=== PATIENT | female | born 1985 ===

== ENCOUNTER 2024-03-13 10:21 | Outpatient (CLI) | payer OTHER | END 2024-03-13 10:50 | disposition home or self-care (01) | LOC: NST 10:21 | PROVIDERS: ATTEND Obstetrics & Gynecology Gynecology | DX: Z34.82 Encounter for supervision of other normal pregnancy, second trimester (principal) ==

== ENCOUNTER 2024-03-18 12:45 | Inpatient (IN) | payer OTHER ==
[~2024-03-18] VITALS: Ht 152.4 cm; Wt 3.2 kg
[2024-03-18] MEDS ORDERED: CEFAZOLIN SODIUM 1,000 MG VIAL IV SCH (14:00)
[2024-03-18] MEDS ORDERED: CITRIC ACID/SODIUM CITRATE 30 ML BLIST.PACK PO SCH (14:00)
[2024-03-18 14:13] LABS: HEMATOCRIT 36.6 % (36.0-45.00); HEMOGLOBIN 12.6 g/dL (12.0-15.00); MEAN CELL VOLUME 88.2 fL (80.00-100.00); MEAN CORPUSCULAR HEMOGLOBIN 30.3 pg (27.00-32.0); MEAN CORPUSCULAR HGB CONC 34.3 g/dl (32.0-36.0); RED BLOOD COUNT 4.15 M/uL (4.00-6.00); RED CELL DISTRIBUTION WIDTH 16.8 % (11.5-14.5)
[2024-03-18 14:27] LABS: PLATELET COUNT 116 K/uL (150-450)
[2024-03-18 14:41] LABS: ALBUMIN 2.8 gm/dL (3.4-5.0); BILIRUBIN TOTAL 0.51 mg/dL (0.3-1.2); CALCIUM 9.1 mg/dL (8.5-10.1); CREATININE SERUM 0.52 mg/dL (0.55-1.02); GFR 132.69; GLOBULINA 3.6 G/DL (2.4-3.5); POTASSIUM 3.88 mEq/L (3.5-5.1); TOTAL PROTEIN 6.4 gm/dL (6.4-8.2)
[2024-03-18 15:04] LABS: INR < 0.93; PARTIAL THROMBOPLASTIN TIME 25.9 SECONDS (22.0-34.0); PROTHROMBIN TIME 9.4 SECONDS (9.0-11.5)
[2024-03-19] MEDS ORDERED: PRENATAL + DHA1 EAC1 PO (12:26)
[2024-03-19] MEDS ORDERED: OXYTOCIN 1,000 ML IV SCH (15:00)
[2024-03-19] MEDS ORDERED: IBUprofen 400 MG TABLET PO PRN (15:00)
[2024-03-19] MEDS ORDERED: MEPERIDINE HCL/PF 50 MG/ML VIAL IM PRN (15:00)
[2024-03-19] MEDS ORDERED: OXYTOCIN 10 UNITS/ML VIAL IV ONE (15:15)
[2024-03-19] MEDS ORDERED: ERYTHROMYCIN BASE 1 GM TUBE OP ONE (15:15)
[2024-03-19] MEDS ORDERED: MORPHINE SULFATE 4 MG/ML VIAL IV ONE (17:30)
[2024-03-19] MEDS ORDERED: OXYTOCIN 10 UNITS/ML VIAL ONE (17:31)
[2024-03-20] MEDS ORDERED: OxyCODONE HCL/APAP UD (PERCOCET) PO PRN (08:30)
[2024-03-20 09:58] LABS: HEMATOCRIT 33.1 % (36.0-45.00); HEMOGLOBIN 11.1 g/dL (12.0-15.00); MEAN CORPUSCULAR HEMOGLOBIN 30.2 pg (27.00-32.0); MEAN CORPUSCULAR HGB CONC 33.6 g/dl (32.0-36.0); RED BLOOD COUNT 3.68 M/uL (4.00-6.00); RED CELL DISTRIBUTION WIDTH 16.5 % (11.5-14.5)
[2024-03-20 10:00] LABS: PLATELET COUNT 93 K/uL (150-450)
[2024-03-21] MEDS ORDERED: FAMOtidine 20 MG TABLET PO SCH (09:15)
[2024-03-21] MEDS ORDERED: DOCUSATE CALCIUM 240 MG CAPSULE PO SCH (09:15)
[2024-03-21] MEDS ORDERED: IBUprofen 600 MG TABLET PO SCH (09:15)
[2024-03-21] MEDS ORDERED: ACETAMINOPHEN 500 MG GEL..CAP PO SCH (12:00)
== END 2024-03-22 13:44 | disposition home or self-care (01) | DRG 788 ==
LOC: EDUNIT# 12:45 → OB/GYN 03-19 11:04 → LDR 03-19 11:04 → O/R 03-19 15:25 → OB/GYN 03-19 15:34
PROVIDERS: Obstetrics & Gynecology; ADMIT Obstetrics & Gynecology Maternal & Fetal Medicine; ATTEND Obstetrics & Gynecology Maternal & Fetal Medicine
PROC: 4A1HXCZ Monitoring of Products of Conception, Cardiac Rate, External Approach (ICD-10-PCS; 2024-03-19)
PROC: 10D00Z1 Extraction of Products of Conception, Low, Open Approach (ICD-10-PCS; principal; 2024-03-19 13:15)
DX: O34.211 Maternal care for low transverse scar from previous cesarean delivery (principal); Z3A.38 38 weeks gestation of pregnancy; Z37.0 Single live birth; Z20.822 Contact with and (suspected) exposure to COVID-19